=== PATIENT | female | born 1985 | race Caucasian/White ===

== ENCOUNTER 2020-08-30 15:11 | Outpatient (REF) | payer MEDICAID, SELFPAY | END 2020-08-30 15:12 | disposition home or self-care (01) | LOC: HO.LAB 15:11 | PROVIDERS: Visit Provider Internal Medicine | DX: Z20.828 Contact with and (suspected) exposure to other viral communicable diseases (principal) | CPT/HCPCS: C9803; U0003 ==

== ENCOUNTER 2021-09-08 12:52 | Outpatient (REF) | payer MEDICAID, SELFPAY ==
[2021-09-08 13:34] LABS: COVID-19 Test Negative (Negative)
== END 2021-09-08 12:53 | disposition home or self-care (01) ==
LOC: HO.LAB 12:52
PROVIDERS: Visit Provider Internal Medicine
DX: Z20.822 Contact with and (suspected) exposure to COVID-19 (principal)
CPT/HCPCS: 36415; 87635; C9803

== ENCOUNTER 2024-11-08 14:01 | Outpatient (REF) | payer MEDICAID, SELFPAY ==
--- OUTSIDE RECORDS SUMMARY | 2024-11-08 15:22 | XMS_ITS | Encounter Summary ---
Author Organization [facility] Address [address] [place] [address] 7 [place] [address] Care Team Providers Care Civil Structural Engineer Name Role Phone Unavailable Primary Care Provider Unavailabl e Reason for Visit * Reason Comments Pre-visit Planning (Unable to reach for PVP screening, LVM) Encounter Details Date Type Department Care Team ([facility] Contact Info) Description 10/11/2024 Patient Outreach [facility] MEDICINE [address] [place] [phone] Rukhsana Camarlilo MD [address] [place], [place] [phone] Pre-visit Planning ((Unable to reach for PVP screening, LVM)) Social History Tobacco Use Types Packs/Day Years Used Date Smoking Tobacco: Never Passive Smoke Exposure: Never Smokeless Tobacco: Never Comments Unknown Sex and Gender Information Value Date Recorded Sex Assigned at Female 07/27/2022 10:33 AM EDT Legal Sex Female 10:33 AM EDT Gender Identity Female 09/09/2022 9:28 AM EST Sexual Orientation Don't know 12/20/2023 2: 01 PM EDT documented as of this encounter Progress Notes * Alexa Lopez - 10/11/2024 9:49 AM EST CC Alexa. Placed outbound call to patient to complete pre-visit planning. No answer at this time. Patient name and were not confirmed. CC left voicemail requesting return call. Direct contact information provided. documented in this encounter Plan of Treatment Upcoming Encounters Date Type Department Care Team (Late Contact Info) Description 12/15/2024 11:45 AM EDT Office Visit [facility] MEDICINE [address] [place] [phone] Rukhsana Camarillo MD [address] [place] [address] documented as of this encounter Visit Diagnoses Not on filedocumented in this encounter
--- OUTSIDE RECORDS SUMMARY | 2024-11-08 15:22 | XMS_ITS | Encounter Summary ---
Author Organization [facility] Address [address] [facility] 7t [place] [address] Care Team Providers Care Dividing Machine Operator Name Role Phone Unavailable Primary Care Provider Unavailabl e Encounter Details Date Type Department Care Team (Latest Contact Info) Description 10/23/2024 Travel Social History Tobacco Use Types Packs/Day Years Used Date Smoking Tobacco: Never Passive Smoke Exposure: Never Smokeless Tobacco: Never Alcohol Use Standard Drinks/Week Comments Not Currently 0 (1 standard drink = 0.6 oz pur e alcohol) social Comments No Sex and Gender Information Value Date Recorded Sex Assigned at Female 07/27/2022 10:33 AM EDT Legal Sex Female 10:33 AM EDT Gender Identity Female 09/09/2022 9:28 AM EST Sexual Orientation Don't know 12/20/2023 2: 01 PM EDT documented as of this encounter Plan of Treatment Upcoming Encounters Date Type Department Care Team (Late st Contact Info) Description 12/15/2024 11:45 AM EDT Office Visit [facility] MED[facility]INE [address] [place] [address] Rukhsana Camarillo MD [address] [place] [address] documented as of this encounter Visit Diagnoses Not on filedocumented in this encounter
--- OUTSIDE RECORDS SUMMARY | 2024-11-08 15:22 | XMS_ITS | Encounter Summary ---
Author Organization [facility] Address [address] [place] [address] 7t [place] [address] Care Team Providers Care Warp Knitting Machine Operator Name Role Phone Unavailable Primary Care Provider Unavailabl e Reason for Visit * Reason Onset Date Comments Chart prep 10/20/2024 Encounter Details Date Type Department Care Team (Late Contact Info) Description 10/20/2024 Telephone [facility]INE [address] [place] [phone] Karely Browne MA Chart prep Social History Tobacco Use Types Packs/Day Years Used Date Smoking Tobacco: Never Passive Smoke Exposure: Never Smokeless Tobacco: Never Comments Unknown Sex and Gender Information Value Date Recorded Sex Assigned at Female 07/27/2022 10:33 AM EDT Legal Sex Female 10:33 AM EDT Gender Identity Female 09/09/2022 9:28 AM EST Sexual Orientation Don't know 12/20/2023 2: 01 PM EDT documented as of this encounter Miscellaneous Notes * Telephone Encounter - Karely Browne MA - 10/20/2024 11:09 AM EST Chart Prep Labs: done Images: done Vaccines due: yes Referrals: N/a Screenings: mammogram , pap smear Overdue care gaps: SDOH, PHQ-9 documented in this encounter Plan of Treatment Upcoming Encounters Date Type Department Care Team (Late Contact Info) Description 12/15/2024 11:45 AM EDT Office Visit [facility] [address] [place] [address] Rukhsana Camarillo MD [address] [place], [place] [phone] documented as of this encounter Visit Diagnoses Not on filedocumented in this encounter
--- OUTSIDE RECORDS SUMMARY | 2024-11-08 15:22 | XMS_ITS | Clinical Summary ---
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 Recommended to decrease soda and sugary beverage consumption, increase protein intake with meals (at least 1 portion of protein with each meal) to assist with satiety, increase dietary fiber Recommended at least 150 min/week of moderate intensity exercise. Patient wants a referral to dietitian. H/O: 10/23/2024 Encounter for screening mamm ogram for malignant neoplasm of breast 10/23/2024 Assessment & Plan (10/23/2024 12:13 PM EST): Ordered mammogram, patient's mother had breast cancer at the age of 42. Screen for sexually transmitted diseases 025 Assessment & Plan (10/23/2024 12:14 PM EST): Discussed with patient to use condom at all times to prevent STD. Consult to our STD clinic PRN. I ordered labs. 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 (CMS/HCC) (Primary Dx); Encounter for screening mammogram for malignant neoplasm of breast; Screen for sexually transmitted diseases; H/O: ; Dietary counseling; Exercise counseling 10/23/2024 Travel 10/20/2024 Telephone [facility] [address] [place] [phone] Karely Browne MA Chart prep 10/11/2024 Patient Outreach [address] [address] Rukhsana Camarillo MD Pre-visit Planning ((Unable to reach for PVP screening, LVM)) from Last 3 Months Social History Tobacco Use Types Packs/Day Years Used Date Smoking Tobacco: Never Passive Smoke Exposure: Never Smokeless Tobacco: Never Tobacco Cessation:Counseling Given: Not Answered Alcohol Use Standard Drinks/Week Comments Not Currently 0 (1 standard drink = 0.6 oz pur e alcohol) social Comments No Sex and Gender Information Value Date Recorded Sex Assigned at Female 07/27/2022 10:33 AM EDT Legal Sex Female 10:33 AM EDT Gender Identity Female 09/09/2022 9:28 AM EST Sexual Orientation Don't know 12/20/2023 2: 01 PM EDT Last Filed Vital Signs Vital Sign Reading Time Taken Comments Blood Pressure 122/79 10/23/2024 10:44 AM EST Pulse 98 10/23/2024 10:44 AM EST Temperature 35.2 ??C (95.3 ??F) 10/23/2024 10:[address] Respiratory Rate 16 10/23/2024 10:44 AM EST Oxygen Saturation 99% 10/23/2024 10:44 AM EST Inhaled Oxygen Concentration - - Weight 99.9 kg (220 lb 4 oz) 10/23/2024 10:44 AM EST Height 157.5 cm (5' 2 ) 10/23/2024 10:44 AM EST Body Mass Index 40.28 10/23/2024 10:44 AM EST Plan of Treatment Upcoming Encounters Date Type Department Care Team (Late st Contact Info) Description 12/15/2024 11:45 AM EDT Office Visit [facility] [address] [facility] [place] [address] Rukhsana Camarillo MD [address] [place] [address] Health Maintenance Due Date Last Done Comments Depression Screening 1983 HIV Screening 1983 Lipid Panel 1983 SDOH Screening 1983 Alcohol/Substance Use Screening 1995 Hepatitis C Screening 2001 DTaP/Tdap/Td Vaccines (1 - Tdap) 2002 Hepatitis B Vaccines (1 of 3 - 19+ 3-dose series) 2002 Pap Smear 01/19/2004 Mammogram 2023 02/18/2018 Cervical Cancer Screening 02/23/2023 HPV/Cotest 02/23/2023 02/23/2018 COVID-19 Vaccine (3 - 2023-2 5 season) 2024 10/09/2021, 09/11/2021 Influenza Vaccine (#1) 2024 Family Planning (PISQ) 10/23/2025 10/23/2024 Tobacco Screening 10/23/2025 10/23/2024 Zoster Vaccines (1 of 2) 2033 RSV Patients and Patients Aged 60 years or older (1 - 1-dose 75+ series) 2058 HIB Vaccines Aged Out No longer eligi ble based on patient's age to complete this topic HPV Vaccines Aged Out No longer eligi ble based on patient's age to complete this topic Hepatitis A Vaccines Aged Out No long er eligible based on patient's age to complete this topic IPV Vaccines Aged Out No longer eligi ble based on patient's age to complete this topic Meningococcal Vaccine Aged Out No kenzie opal eligible based on patient's age to complete this topic Pneumococcal Vaccine: Pediatrics (0 to 5 Years) and At-Risk Patients (6 to 49) Years) Aged Out No longer eligible b ased on patient's age to complete this topic RSV under 20 months Aged Out No longe r eligible based on patient's age to complete this topic Rotavirus Vaccines Aged Out No longer eligible based on patient's age to complete this topic Procedures Procedure Name Priority Date/Time Associated Diagnosis Comments GET HISTORICAL HPV MRNA E6/E7 Routine 02/23/2018 2:54 PM EDT BI MAMMOGRAM SCREENING BILATERAL Routine 02/18/2018 10:24 AM EDT from Last 3 Months or Most Recently Relevant to Health Maintenance Results * HPV mRNA E6/E7 (02/23/2018 2:54 PM EDT) HPV mRNA E6/E7 Not Detected NOT DETECTED [facility] Comment: This test was performed using the APTIMA(R) HPV Assay ([employer] This assay detects E6/E7 viral messenger RNA (mRNA) from 14 high-risk HPV types (16,18,31,33,35,39,45,51, 52,56,58,59,66,68). For additional information please refer to: http://education.BranchOut/faq/MBR397k1 (This link is being provided for informational/ educational purposes only.) The analytical performance characteristics of this assay have been determined by [employer] [place], [place]. The modifications have not been cleared or approved by the FDA. This assay has been validated pursuant to the CLIA regulations and is used for clinical purposes. Test Performed by [facility], [address] [employer] [facility], [address] [place] [address] Dalton Brunner M.D., Ph.D., Director of Laboratories , CLIA [id number] Please note: ??Effective 06/08/2016, HPV testing will be performed using [facility]'s APTIMA test which targets mRNA. Detecting mRNA instead of DNA, as in older methods, offers significant improvements in specificity. 02/23/2018 2:54 PM EDT us Humera Pitt CNM HISTORICAL/NON ORDERABLE LABS Final Result [facility] [address] * DIGITAL BILATERAL SCREEN 1 (02/18/2018 10:24 AM EDT) Anatomical Region Laterality Modality Breast Bilateral Mammography 02/18/2018 10:2 4 AM EDT Narrative 02/18/2018 10:26 AM EDT Refer to the Notes tab for result details [facility] Procedure: DIGITAL BILATERAL SCREEN 1 Procedure Note Provider, MD Chioma - 12/19/2022 Refer to the Notes tab for result details Legacy Procedure: DIGITAL BILATERAL SCREEN 1 us Carmen Witt MD IMG BI PROCEDURES Final Resul t from Last 3 Months or Most Recently Relevant to Health Maintenance [facility] Care Teams Carpet Inspector Relationship Specialty Start Date End Date Rukhsana Camarillo MD [address] [place] [address] [place] [address] PCP - General Internal Medicine 10/26/24
--- OUTSIDE RECORDS SUMMARY | 2024-11-08 15:22 | XMS_ITS | Encounter Summary ---
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 ([facility]) Rukhsana Camarillo MD [address] [place] [address] Phone: tel: fax: Referral ID Status Reason Start Date Expiration Date V isits Requested Visits Authorized [id number] Closed Consult and Treat 10/23/2024 10/23/2025 1 1 * Imaging (Routine) - Closed Specialty Diagnoses / Procedures Referred By Chelsy bose Referred To Contact Radiology Diagnoses Encounter for screening mammogram for malignant neoplasm of breast Procedures BI Mammogram Screening Tomosynthesis Bilateral Rukhsana Camarillo MD [address] [place] [address] Phone: tel: fax: [facility] [address] [place] [address] Phone: tel: fax: Referral ID Status Reason Start Date Expiration Date Visits Re quested Visits Authorized [id number] Closed 10/23/2024 10/23/2025 1 1 Reason for Visit * Reason Comments New patient appointment Encounter Details Date Type Department Care Team (Late st Contact Info) Description 10/23/2024 10:45 AM EST Office Visit [facility] [address] [place], [place] [phone] Rukhsana Camarillo MD [address] [place] [address] 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 year old female who presents for new patient visit . Denies recent illness, injury, or hospitalization. Patient here to establish care. PSurgHx: C-sections 2005, 2009 and BTL 14 yrs ago. OBHx: both uncomplicated C-Sections. LMP: 10/06/24 All: NKDA Mother: Breast cancer at 42yrs old. Father: no known history Siblings: no known history Last pap smear: 01/2018 Mammogram: 01/2018 Patient denies having any chronic disease and does not take any medication. 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 Acute Concerns: Patient states to be concerned about her weight. She is interested in taking Ozempic as it was recommended by one of her friends. 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 Review of Systems Constitutional: Positive for unexpected weight change (weight gain). Negative for chills, fatigue and fever. HENT: Negative for congestion, ear pain, nosebleeds, rhinorrhea, sinus pressure, sore throat and trouble swallowing. Eyes: Negative for pain and discharge. Respiratory: Negative for cough, chest tightness and shortness of breath. Cardiovascular: Negative for chest pain, palpitations and leg swelling. Gastrointestinal: Negative for abdominal pain, blood in stool, constipation, diarrhea and nausea. Endocrine: Negative for polydipsia and polyuria. Genitourinary: Negative for dysuria, frequency, genital sores, pelvic pain and vaginal discharge. Musculoskeletal: Negative for back pain and neck pain. Skin: Negative for rash. Allergic/Immunologic: Negative for environmental allergies. Neurological: Negative for dizziness, seizures, weakness, light-headedness and headaches. Hematological: Negative for adenopathy. Psychiatric/Behavioral: Negative for agitation, behavioral problems, self-injury and suicidal ideas. OBJECTIVE: Vitals: 10/23/24 1044 BP: 122/79 Pulse: 98 Resp: 16 Temp: 95.3 ??F (35.2 ??C) SpO2: 99% Physical Exam HENT: Right Ear: Tympanic membrane and ear canal normal. Left Ear: Tympanic membrane and ear canal normal. Mouth/Throat: Mouth: Mucous membranes are moist. Pharynx: No oropharyngeal exudate or posterior oropharyngeal erythema. Eyes: Pupils: Pupils are equal, round, and reactive to light. Cardiovascular: Rate and Rhythm: Regular rhythm. Pulses: Normal pulses. Heart sounds: Normal heart sounds. No murmur heard. Pulmonary: Breath sounds: Normal breath sounds. Abdominal: General: Bowel sounds are normal. Palpations: Abdomen is soft. Tenderness: There is no abdominal tenderness. Musculoskeletal: General: Normal range of motion. Cervical back: Neck supple. Skin: General: Skin is warm. Neurological: General: No focal deficit present. Mental Status: She is alert and oriented to person, place, and time. Psychiatric: Mood and Affect: Mood normal. Behavior: Behavior normal. 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 Recommended to decrease soda and sugary beverage consumption, increase protein intake with meals (at least 1 portion of protein with each meal) to assist with satiety, increase dietary fiber Recommended at least 150 min/week of moderate intensity exercise. Patient wants a referral to dietitian. Relevant Orders TSH with Reflex to Free T4 Comprehensive Metabolic Panel Lipid Panel with Reflex to Direct LDL CBC auto differential Hemoglobin A1c Referral to Nutrition Therapy Encounter for screening mammogram for malignant neoplasm of breast Ordered mammogram, patient's mother had breast cancer at the age of 42. Relevant Orders BI Mammogram Screening Tomosynthesis Bilateral Screen for sexually transmitted diseases Discussed with patient to use condom at all times to prevent STD. Consult to our STD clinic PRN. I ordered labs. Relevant Orders HIV-1/2 Antigen and Antibodies, Fourth Generation, with Reflexes Hepatitis Panel, General H/O: Other Visit Diagnoses Dietary counseling Exercise counseling Follow Up: No current outpatient medications on file prior to visit. No current facility-administered medications on file prior to visit. I, Michelle Gunderson, am serving as a scribe to document services personally performed by Dr. Rukhsana Camarillo, based on the patient's response to questions by provider and provider's statements to me. documented in this encounter Miscellaneous Notes * Patient Education Note - Rukhsana Camarillo MD - 10/23/2024 4:02 PM EST Images from the original note were not included. Patient Education Table of Contents Obesidad en los adultos (Obesity, Adult) To view videos and all your education online visit, [email or web address] or scan this QR code with your smartphone. Access to this content will in one year. Obesidad en los adultos Obesity, Adult La obesidad es regla afecci?n que implica tener demasiada grasa corporal total. Tener sobrepeso u obesidad significa que el peso es mayor que lo que se considera saludable para el lucila?o corporal. La obesidad se determina mediante regla medida denominada IMC (?ndice de masa muscular). El IMC (?ndice demasa corporal) es la estimaci?n de la grasa corporal y se calcula a partir de la altura y el peso. Si un adulto tiene un IMC de 30 o superior se considera [place]ia. La obesidad puede conducir a algunos de los siguientes problemas de jeanine y enfermedades graves: Accidente cerebrovascular. Arteriopat?a coronaria (EAC). Diabetes tipo 2. Algunos tipos de c?ncer, incluido el c?ncer de colon, mama, ?tero y ves?cula. Presi?n arterial reyna (hipertensi?n arterial). Colesterol alto. C?lculos en la ves?cula biliar. La obesidad tambi?n puede contribuir a lo siguiente: Artrosis. Apnea del roberto?o. Problemas de esterilidad. ?Cu?les son las causas? Las causas m?s frecuentes de esta afecci?n incluyen las siguientes: Consumir diariamente alimentos con altos niveles de calor?as, az?car y grasa. Beber grandes cantidades de bebidas endulzadas con az?car, wang refrescos. Nacer con genes que pueden hacerlo m?s propenso a ser [place]ia. Tener regla afecci?n que causa obesidad, por ejemplo: ? Hipotiroidismo. ? S?ndrome del ovario poliqu?stico (SOP). ? Trastorno alimentario compulsivo. ? S?ndrome de [place]. Jad ciertos medicamentos, wang esteroides, antidepresivos y anticonvulsivos. No ser f?sicamente activo (estilo de cara sedentario). No dormir lo suficiente. ?Qu?? incrementa el riesgo? Los siguientes factores pueden hacer que sea m?s propenso a contraer esta afecci?n: Tener antecedentes familiares de obesidad. Vivir en un ?bailee con acceso limitado a las siguientes posibilidades: ? Parques, centros recreativos o veredas. ? Alimentos saludables, wang se venden en tiendas de comestibles y mercados de agricultores. ?Cu?les son los signos o s?ntomas? El principal signo de esta afecci?n es tener demasiada grasa corporal. ?C?mo se diagnostica? Esta afecci?n se diagnostica en funci?n de lo siguiente: Ryan IMC. Si usted es un adulto y ryan IMC es de 30 o m?s, se considera que es [place]. La circunferencia de la cintura. Es regla medici?n alrededor de la cintura. El grosor del pliegue cut?brisa. El m?dico puede pellizcar suavemente un pliegue de la piel y medirlo. Es posible que le enrique otros estudios para phil si hay afecciones subyacentes. ?C?mo se trata? El tratamiento de esta afecci?n frecuentemente incluye cambiar el estilo de cara. El tratamiento puede incluir algunos o todos los siguientes elementos: Cambios en la dieta. [place] puede incluir el desarrollo de un plan de alimentaci?n saludable. Realizar actividad f?ken con regularidad. Puede incluir regla actividad que hace que el coraz?n latam?s r?pido (ejercicio aer?bico) y entrenamiento de fuerza. Trabajar con el m?dico para dise?ar un programa de ejercicios que sea adecuado para usted. Medicamentos para ayudarle a bajar de peso si no puede perder regla lexie por semana despu?s de seis semanas de comer de manera saludable y de hacer m?s actividad f?ken. Tratar las afecciones que causan la obesidad (afecciones preexistentes). Cirug?a. Las opciones quir?rgicas pueden incluir bandas g?stricas y bypass g?strico. Se puede realizar regla cirug?a si: ? Otros tratamientos no mejoraron ryan afecci?n. ? Tiene un IMC de 40 o superior. ? Tiene problemas de jeanine potencialmente mortales relacionados con la obesidad. Siga estas indicaciones en ryan casa: Comida y bebida Siga las instrucciones del m?dico respecto de lo que puede comer o beber. El m?dico puede indicarleque mesfin lo siguiente: ? Limitar las comidas r?pidas, los dulces y las colaciones procesadas. ? Elegir opciones con bajo contenido de grasa, wang leche descremada en lugar de leche entera. ? Consumir akin o m?s porciones de frutas o verduras por d?a. ? Elegir alimentos saludables cuando coma afuera. ? Tener a mano colaciones con bajo contenido de grasas. ? Limitar las bebidas azucaradas, wang refrescos, jugo de frutas, t?? helado endulzado y leche saborizada. Nataliia suficiente agua para mantener la orina de color amarillo p?lido. No siga regla dieta de moda. Las dietas de moda pueden ser poco saludables e incluso peligrosas. Otras opciones saludables incluyen: ? [place] en casa con m?s frecuencia. [place] le da m?s control sobre lo que come. ? Aprender a leer las etiquetas de los alimentos. [place] le ayudar?? a entender cu?nta comida se considera regla porci?n. ? Aprender cu?l es el lucila?o de regla porci?n saludable. Actividad f?ken Realice ejercicio con regularidad wang se lo haya indicado el m?dico. ? La mayor?a de los adultos deben hacer hasta 150?minutos de ejercicio de intensidad moderada cada semana. ? Consulte al m?dico qu?? tipo de ejercicios es seguro para usted y con qu?? frecuencia debe ejercitarse. Precaliente y elongue adecuadamente antes de hacer actividad f?ken. Rel?aida y elongue despu?s de hacer actividad f?ken. Descanse entre los per?odos de actividad. Estilo de cara Trabaje con el m?dico y un nutricionista para establecer regla meta de p?rdida de peso que sea saludable y razonable para usted. Limite el tiempo que pasa frente a regla pantalla. Busque formas de recompensarse que no incluyan alimentos. No nataliia alcohol si: ? Ryan m?dico le indica no hacerlo. ? Est?? embarazada, puede estar embarazada o est?? tratando de quedar embarazada. Si maria del rosario alcohol: ? Limite la cantidad que maria del rosario a lo siguiente: ? De 0 a 1 medida por d?a para las mujeres. ? De 0 a 2 medidas por d?a para los hombres. ? Sepa cu?nta cantidad de alcohol hay en las bebidas que belkys. En los [place], regla medida equivale a regla botella de cerveza de 12?oz (355?ml), un vaso de vino de 5?oz (148?ml) o un vaso de unabebida alcoh?lica de reyna graduaci?n de 1??oz (44?ml). Indicaciones generales Registre la p?rdida de peso en un diario para realizar un seguimiento de los alimentos que consume y cu?nto se ejercita. Use los medicamentos de venta wang y los recetados solamente wang se lo haya indicado el m?dico. [place] vitaminas y suplementos solamente wang se lo haya indicado el m?dico. Considere la posibilidad de participar en un jyoti de apoyo. El m?dico podr?a recomendarle un grupode apoyo. Preste atenci?n a la jeanine mental, ya que la obesidad puede provocar depresi?n o problemas de autoestima. Concurra a todas las visitas de seguimiento. [place] es importante. Comun?quese con un m?dico si: No puede alcanzar ryan objetivo de p?rdida de peso despu?s de seis semanas de cambios en la dieta y en el estilo de cara. Tiene dificultad para respirar. Resumen La obesidad es regla afecci?n que implica tener demasiada grasa corporal total. Tener sobrepeso u obesidad significa que el peso es mayor que lo que se considera saludable para eltama?o corporal. Trabaje con el m?dico y un nutricionista para establecer regla meta de p?rdida de peso que sea saludable y razonable para usted. Realice ejercicio con regularidad wang se lo haya indicado el m?dico. Consulte al m?dico qu?? tipo de ejercicios es seguro para usted y con qu?? frecuencia debe ejercitarse. Esta informaci?n no tiene wang fin reemplazar el consejo del m?dico. Aseg?rese de hacerle al m?dicocualquier pregunta que tenga. Document Released: 2006-09-13 Document Updated: 2022-05-12 Document Reviewed: 2022-05-12 Elsevier Patient Education ? 2023 [facility]. * Assessment & Plan Note - Michelle Gunderson MA - 10/23/2024 12:14 PM EST Associated Problem(s): Screen for sexually transmitted diseases Discussed with patient to use condom at all times to prevent STD. Consult to our STD clinic PRN. I ordered labs. * Assessment & Plan Note - Michelle Gunderson MA - 10/23/2024 12:13 PM EST Associated Problem(s): Encounter for screening mammogram for malignant neoplasm of breast Ordered mammogram, patient's mother had breast cancer at the age of 42. 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 Recommended to decrease soda and sugary beverage consumption, increase protein intake with meals (at least 1 portion of protein with each meal) to assist with satiety, increase dietary fiber Recommended at least 150 min/week of moderate intensity exercise. Patient wants a referral to dietitian. documented in this encounter Plan of Treatment Upcoming Encounters Date Type Department Care Team (Late st Contact Info) Description 12/15/2024 11:45 AM EDT Office Visit [facility] [address] [place], [place] [phone] Rukhsana Camarillo MD [address] [place], [place] [phone] Scheduled Orders Name Type Priority Associated Diagnoses Orde r Schedule TSH with Reflex to Free T4 Lab Routine Class 3 Obesity Due To Disruption Of Mc4r Pathway Without Serious Comorbidity With Body Mass Index (Bmi) Of 40.0 To 44.9 In Adult ([facility]) Expected: 10/23/2024 (Approximate), Expires: 10/23/2025 Comprehensive Metabolic Panel Lab Routine Class 3 Obesity Due To Disruption Of Mc4r Pathway Without Serious Comorbidity With Body Mass Index (Bmi) Of 40.0 To 44.9 In Adult ([facility]) Expected: 10/23/2024 (Approximate), Expires: 10/23/2025 Lipid Panel with Reflex to Direct LDL Lab Routine Class 3 Obesity Due To Disruption Of Mc4r Pathway Without Serious Comorbidity With Body Mass Index (Bmi) Of 40.0 To 44.9 In Adult ([facility]) Expected: 10/23/2024 (Approximate), Expires: 10/23/2025 HIV-1/2 Antigen and Antibodies, Fourth Generation, with Reflexes Lab Routine Screen for sexually transmitted diseases Expected: 10/23/2024 (Approximate), Expires: 10/23/2025 Hepatitis Panel, General Lab Routine Screen for sexually transmitted diseases Expected: 10/23/2024 (Approximate), Expires: 10/23/2025 CBC auto differential Lab Routine 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 to 44.9 in adult ([facility]) Expected: 10/23/2024 (Approximate), Expires: 10/23/2025 Hemoglobin A1c Lab Routine 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 to 44.9 in adult ([facility]) Expected: 10/23/2024 (Approximate), Expires: 10/23/2025 BI Mammogram Screening Tomosynthesis Bilateral Imaging Routine Encounter for screening mammogram for malignant neoplasm of breast Expected: 10/23/2024 (Approximate), Expires: 12/21/2025 Scheduled Referrals Name Type Priority Associated Diagnoses Orde r Schedule Referral to Nutrition Therapy Outpatient Referral Routine 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 to 44.9 in adult ([facility]) Expected: 10/23/2024 (Approximate), Expires: 10/23/2025 documented as of this encounter Visit Diagnoses Diagnosis 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
--- OUTSIDE RECORDS SUMMARY | 2024-11-08 15:22 | XMS_ITS | Encounter Summary ---
Author Organization [employer] [facility] Address [address] [facility] [facility] [address] [place] [address] Care Team Providers Care Organisation And Methods Analyst Name Role Phone Rukhsana Camarillo MD Primary Care Provider + Reason for Visit * Reason Onset Date Comments NUTRITION APPT REQUEST 10/26/2024 Encounter Details Date Type Department Care Team (Late Contact Info) Description 10/26/2024 Telephone [facility] [address] [place] [address] [place] [address] NUTRITION APPT REQUEST Social History Tobacco Use Types Packs/Day Years [...] encounter Miscellaneous Notes * Telephone Encounter - Abigail Julian - 10/26/2024 11:17 AM EST Called PT to schedule a nutritiona ppt. NA\LVM documented in this encounter Plan of Treatment Upcoming Encounters Date Type Department Care Team (Late Contact Info) Description 12/15/2024 11:45 AM EDT Office Visit [facility] [address] [place] [phone] Rukhsana Camarillo MD [address] [place] [address] documented as of this encounter Visit Diagnoses Not on filedocumented in this encounter Care Teams Organisation And Methods Analyst Relationship Specialty Start Date End Date Rukhsana Camarillo MD [address] [place] [address] PCP - General Internal Medicine 10/26/24 documented as of this encounter
== END 2024-11-08 14:02 | disposition home or self-care (01) ==
LOC: HO.MAMMO 14:01
PROVIDERS: PCP Internal Medicine; Visit Provider Internal Medicine
DX: Z12.31 Encounter for screening mammogram for malignant neoplasm of breast (principal)
CPT/HCPCS: 77063; 77067

== ENCOUNTER → 2024-11-08 14:15 | Outpatient (BNV) | payer MEDICAID, SELFPAY | PROVIDERS: PCP Internal Medicine; Visit Provider Internal Medicine | DX: Z12.31 Encounter for screening mammogram for malignant neoplasm of breast (principal) | CPT/HCPCS: 77063; 77067 ==

== ENCOUNTER 2024-12-09 08:38 | Outpatient (REF) | payer MEDICAID, SELFPAY ==
--- OUTSIDE RECORDS SUMMARY | 2024-12-09 08:40 | XMS_ITS | Clinical Summary ---
Author Organization [facility] Address [address] 7[address] [place] [address] Care Team Providers Care Statement Distribution Clerk Name Role Phone Rukhsana Camarillo MD Primary [...] Encounters Date Type Department Care Team Description 12/08/2024 Patient Outreach [facility] MED & PEDS [address] [place] [address] Rukhsana Camarillo MD Pre-visit Planning (SDOH negative, Tobacco screening negative. 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 (CMS/[facility]) (Primary Dx); Encounter for screening mammogram for malignant neoplasm of breast; Screen for sexually transmitted diseases; H/O: ; Dietary counseling; Exercise counseling 10/23/2024 Travel 10/20/[address] [address] K[address] [place] [place] Chart prep 10/11/2024 Patient Outreach [address] [address] Rukhsana Camarillo MD Pre-visit Planning ((Unable to reach for PVP screening, LVM)) from Last 3 Months Social History Tobacco Use Types Packs/Day Years Used Date Smoking Tobacco: Never Passive Smoke Exposure: Never Smokeless Tobacco: Never Tobacco Cessation:Counseling Given: Not Answered Alcohol Use Standard Drinks/Week Comments Not Currently 0 (1 standard drink = 0.6 oz pur e alcohol) social Housing Stability Answer Date Recorded What is your housing situation today? I have adina vasquez 12/08/[address] you li ve. Do you have problems with any of the following? None of the above 12/08/2024 Food Insecurity Answer Date Recorded Within the past 12 months, y ou worried that your food would run out before you got money to buy more: Never True 12/08/2024 Within the past 12 months,th e food you bought just didn't last and you didn't have enough money to get more: Never True Transportation Answer Date Recorded In the past 12 months, has l ack of transportation kept you from medical appts, meetings, work or from getting things needed for daily living? No 12/08/2024 Utilities Answer Date Recorded In the past 12 months, has t he electric, gas, oil or water company threatened to shut off services in your home? No 12/08/2024 Internet Access Answer Date Recorded Internet Access Q1 Yes 12/08/2024 Internet Access Q2 Not on file 12/08/2024 Comments No Sex and Gender Information Value [...] Description 12/15/2024 11:45 AM EDT Office Visit [facility] MEDICINE [address] [place] [address] Rukhsana Camarillo MD [address] [place] [address] Health Maintenance Due Date Last Done Comments Depression Screening 1983 HIV Screening 1983 Lipid Panel 1983 Alcohol/Substance Use Screening 1995 Hepatitis C Screening 2001 DTaP/Tdap/Td Vaccines (1 - Tdap) 2002 Hepatitis B Vaccines (1 of 3 - 19+ 3-dose series) 2002 Pap Smear 01/19/2004 Cervical Cancer Screening 02/23/2023 HPV/Cotest 02/23/2023 02/23/2018 COVID-19 Vaccine (3 - 2023-2 5 season) 2024 10/09/2021, 09/11/2021 Influenza Vaccine (#1) 2024 Family Planning (PISQ) 10/23/2025 10/23/2024 Tobacco Screening 10/23/2025 10/23/2024 SDOH Screening 12/08/2025 12/08/2024 Mammogram 11/08/2026 11/08/2024, 02/18/2018 Zoster Vaccines (1 of 2) 2033 RSV [...] Procedure Name Priority Date/Time Associated Diagnosis Comments BI MAMMOGRAM SCREENING TOMOSYNTHESIS BILATERAL Routine 11/08/2024 2:15 PM EST Encounter for screening mammogram for malignant neoplasm of breast ZZZ HISTORICAL HPV MRNA E6/E7 Routine 02/23/2018 2:54 PM EDT from Last 3 Months or Most Recently Relevant to Health Maintenance Results * BI Mammogram Screening Tomosynthesis Bilateral (11/08/2024 2:15 PM EST) Anatomical Region Laterality Modality Breast Bilateral Mammography 11/08/2024 2:15 PM EST Narrative 11/17/2024 4:41 PM EST ? [facility] ? [address] ?[place] [address] ? Mammography Report ? Signed ? Patient: Quiroga Carolina,Hyacinth ?MR#: [id number] ?? [id number] ? : 1985 ?Acct:[id number] ? Age/Sex: 39 / F ?ADM Date: 11/08/24 ? Loc: HO.MAMMO ? Attending Dr: Rukhsana Camarillo MD ? Ordering Physician: Rukhsana Camarillo MD ?Results: 1Ne ?? gative ? Date of Service: 11/08/24 ?Follow Up: 1 Year From Orig ?? inal Mammogram ? Procedure(s): MM tomosynthesis screening BI ?? Accession Number(s): [id number] ? cc: Rukhsana Camarillo MD ? EXAMINATION: ?? MM SCREENING DIGITAL BREAST TOMOSYNTHESIS, BILATERAL ? CLINICAL INFORMATION: ? Screening. Asymptomatic. ? COMPARISON: ?? Mammography: Comparison is made with available priors ? TECHNIQUE: ?? Digital breast mammography with tomosynthesis is performed in both the ?? craniocaudal and mediolateral oblique views along with computer-aided ?? detection (CAD). ? FINDINGS: ?? There are scattered areas of fibroglandular density (ACR BI-RADS breast ?? composition Category b). ? There are no significant masses, abnormal calcifications, or other ?? abnormalities. ? MM/MM tomosynthesis screening BI ?? IMPRESSION: ?? No mammographic evidence of malignancy. ? ASSESSMENT: ? BI-RADS BI-RADS 1 - Negative ? RECOMMENDATION: ?? Routine annual mammography screening. ?? Patient has a strong family history of breast cancer. Breast MRI could ?? be considered for screening surveillance. ?? Breast MRI would need to be ordered by the patient's providing ?? clinician. ? 1 year F/U ? This examination should not preclude the clinical evaluation of a ?? suspicious palpable abnormality. ? This patient's information was entered into a reminder system with a ?? target due date for their next mammogram. ? Electronically signed by: ??Amisha Mckay DO ??11/17/2024 04:38 PM EST ?? RP ? Dictated By: ?Amisha Mckay DO ? Signed By: ?<Electronically signed by Amisha Mckay, in OV> ? 11/17/24 1638 ? DD/ 1415 ? TD/TT: 11/08/24 1430 ? Bi Data Architect: ? Procedure Note Wagner, Image - 11/17/2024 [place] [facility] [address] [place] [address] Mammography Report Signed Patient: Hyacinth ChengMR#: [id number] : 1985Acct:[id number] Age/Sex: 39 / FADM Date: 11/08/24 Loc: HO.MAMMO Attending Dr: Rukhsana Camarillo MD Ordering Physician: Rukhsana Camarillo MDResults: 1Ne gative Date of Service: 11/08/24Follow Up: 1 Year From Orig inal Mammogram Procedure(s): MM tomosynthesis screening BI Accession Number(s): [id number] cc: Rukhsana Camarillo MD EXAMINATION: MM SCREENING DIGITAL BREAST TOMOSYNTHESIS, BILATERAL CLINICAL INFORMATION: Screening. Asymptomatic. COMPARISON: Mammography: Comparison is made with available priors TECHNIQUE: Digital breast mammography with tomosynthesis is performed in both the craniocaudal and mediolateral oblique views along with computer-aided detection (CAD). FINDINGS: There are scattered areas of fibroglandular density (ACR BI-RADS breast composition Category b). There are no significant masses, abnormal calcifications, or other abnormalities. MM/MM tomosynthesis screening BI IMPRESSION: No mammographic evidence of malignancy. ASSESSMENT: BI-RADS BI-RADS 1 - Negative RECOMMENDATION: Routine annual mammography screening. Patient has a strong family history of breast cancer. Breast MRI could be considered for screening surveillance. Breast MRI would need to be ordered by the patient's providing clinician. 1 year F/U This examination should not preclude the clinical evaluation of a suspicious palpable abnormality. This patient's information was entered into a reminder system with a target due date for their next mammogram. Electronically signed by: Amisha Mckay DO 11/17/2024 04:38 PM [facility] Dictated By: Amisha Mckay DO Signed By: <Electronically signed by Amisha Mckay DO in OV> 11/17/24 1638 DD/ 1415 TD/TT: 11/08/24 1430 Bi Data Architect: Rukhsana Camarillo MD IM BI PROCEDURES Final Result * HPV mRNA E6/E7 (02/23/2018 2:54 PM EDT) HPV mRNA E6/E7 Not Detected NOT DETECTED [facility] Comment: This test was performed using the APTIMA(R) HPV Assay ([employer] This assay detects E6/E7 viral messenger RNA (mRNA) from 14 high-risk HPV types (16,18,31,33,35,39,45,51, 52,56,58,59,66,68). For additional information please refer to: http://education.F[employer].GMG33/faq/OSH597p7 (This link is being provided for informational/ educational purposes only.) The analytical performance characteristics of this assay have been determined by [employer] [place], [place]. The modifications have not been cleared or approved by the FDA. This assay has been validated pursuant to the CLIA regulations and is used for clinical purposes. Test Performed by [employer] [facility], [employer] [facility], [address] [place] [address] Dalton Brunner M.D., Ph.D., Director of Laboratories , [facility] [id number] Please note: ??Effective 06/08/2016, HPV testing will be performed using [employer]'s APTIMA test which targets mRNA. Detecting mRNA instead of DNA, as in older methods, offers significant improvements in specificity. 02/23/2018 2:54 PM EDT us [facility] CNM HISTORICAL/NON ORDERABLE LABS Final Result Performing Organization Address City/State/[facility] Co de Phone Number [facility] Formerly [facility] Anywhere [address] from Last 3 Months or Most Recently Relevant to Health Maintenance Insurance [facility] C3 Care Teams Statement Distribution Clerk Relationship Specialty Start Date End Date Rukhsana Camarillo MD [address] [place] [address] PCP - General Internal Medicine 10/26/24
--- OUTSIDE RECORDS SUMMARY | 2024-12-09 08:40 | XMS_ITS | Encounter Summary ---
Author Organization [employer] Address [address] [facility] 7[address] [place] [address] Care Team Providers Care Security Solutions Engineer Name Role Phone Rukhsana Camarillo MD Primary Care Provider + Encounter Details Date Type Department Care Team (Late st Contact Info) Description 12/08/2024 Population Health Risk Score [facility] (C3) Department [address] [facility] [address] [place] [id number] Provider, Population Health Generic Social History Tobacco Use Types Packs/Day Years Used Date Smoking Tobacco: Never Passive Smoke Exposure: Never Smokeless Tobacco: Never Alcohol Use Standard Drinks/Week Comments Not Currently 0 (1 standard drink = 0.6 oz pur e alcohol) social Housing Stability Answer Date Recorded What is your housing situation today? I have adina sing 12/08/[address] you li [...] Description 12/15/2024 11:45 AM EDT Office Visit [facility] MEDICINE [address] [place] [address] Rukhsana Camarillo MD [address] [place] [address] documented as of this encounter Visit Diagnoses Not on filedocumented in this encounter Care Teams Security Solutions Engineer Relationship Specialty Start Date End Date Rukhsana Camarillo MD [address] [place] [address] PCP - General Internal Medicine 10/26/24 documented as of this encounter
--- OUTSIDE RECORDS SUMMARY | 2024-12-09 08:41 | XMS_ITS | Encounter Summary ---
Author Organization [employer] Address [address] [facility] [address] 7[address] [place] [address] Care Team Providers Care Embedded Software Design Engineer Name Role Phone Rukhsana Camarillo MD Primary Care Provider + Reason for Visit * Reason Comments Pre-visit Planning SDOH negative, Tobac co screening negative. Encounter Details Date Type Department Care Team ([facility] st Contact Info) Description 12/08/2024 Patient Outreach [facility] MED & PEDS [address] [place] [address] Rukhsana Camarillo MD [address] [place] [address] Pre-visit Planning (SDOH negative, Tobacco screening negative. ) Social History Tobacco Use Types Packs/Day Years Used Date Smoking Tobacco: Never Passive Smoke Exposure: Never Smokeless Tobacco: Never Alcohol Use Standard Drinks/Week Comments Not Currently 0 (1 standard drink = 0.6 oz pur e alcohol) social Housing Stability Answer Date Recorded What is your housing situation today? I have adinagerald vasquez 12/08/[address] you [...] t he electric, gas, oil or water [employer] threatened to shut off services in your [...] as of this encounter Progress Notes * Scarlett Macdonald - 12/08/2024 3:57 PM EDT CC Scarlett Mckenna placed successful outbound call to patient for pre-visit planning. Patient name and confirmed. Patient confirms appt date and time, and has transportation arrangements. Biggest concern for appointment at this time is no concerns. Appropriate screenings completed in anticipation ofappointment. documented in this encounter Plan of Treatment Upcoming Encounters Date Type Department Care Team (Late st Contact Info) Description 12/15/2024 11:45 AM EDT Office Visit [facility] MEDICINE [address] [place] [address] Rukhsana Camarillo MD [address] [place] [address] documented as of this encounter Visit Diagnoses Not on filedocumented in this encounter Care Teams Embedded Software Design Engineer Relationship Specialty Start Date End Date Rukhsana Camarillo MD [address] [place] [address] PCP - General Internal Medicine 10/26/24 documented as of this encounter
[2024-12-09 08:49] LABS: MANUAL DIFF FLAG NO
[2024-12-09 09:42] LABS: Basophils Absolute Auto 0.1 X10*3/uL (0.0-0.2); Basophils Percent Auto 1.1 % (0-2); Eosinophils Absolute Auto 0.1 X10*3/uL (0.0-0.4); Eosinophils Percent Auto 2.2 % (0-4); Hematocrit 36.6 % (37.0-47.0); Hemoglobin 12.8 g/dl (12.0-16.0); Imm Gran Abs Auto 0.01 X10*3/uL (0.00-0.03); Imm Gran Pct Auto 0.2 % (0.0-0.4); Lymphocytes Absolute Auto 1.4 X10*3/uL (1.2-4.9); Mean Corpuscular Hemoglobin 31.9 pg (27.0-33.0); Mean Corpuscular Volume 91.3 fL (80.0-98.0); Monocytes Absolute Auto 0.4 X10*3/uL (0.1-1.2); Monocytes Percent Auto 6.9 % (2-11); Neutrophils Absolute Auto 3.5 x10*3/uL (2.0-8.3); Neutrophils Percent Auto 64.6 % (45-73); Platelet Count 366 X10*3/uL (160-400); Red Blood Count 4.01 X10*6/uL (4.20-5.50); Red Cell Distribution Width 12.5 % (11.0-16.0); White Blood Count 5.4 X10*3/uL (4.8-10.8)
[2024-12-09 09:52] LABS: Estimated Average Glucose 100 mg/dL; Hemoglobin A1c % 5.1 % (<6.0)
[2024-12-09 10:39] LABS: Alanine Aminotransferase 33 U/L (0-31); Alkaline Phosphatase 87 U/L (39-117); Anion Gap 11 (12-20); Aspartate Amino Transferase 27 U/L (5-31); Bilirubin Total 0.5 mg/dL (0.0-1.0); Blood Urea Nitrogen 10 mg/dL (9-16); Calcium 9.1 mg/dL (8.4-10.2); Carbon Dioxide 24 mmol/L (22-29); Chloride 109 mmol/L (96-108); Cholesterol 152 mg/dL (<200); Estimated Glomerular Filt Rate > 60; Glucose Random 81 mg/dL (60-115); HDL Cholesterol 48 mg/dL (>40); LDL Cholesterol Calculated 89 mg/dL (<100); Potassium 4.2 mmol/L (3.3-5.1); Sodium 140 mmol/L (135-145); Total Protein 7.1 g/dL (6.5-8.0); Triglycerides 78 mg/dL (<150)
[2024-12-09 10:48] LABS: HBS Num1 1.07 mIU/mL (0-7.99); HBsAGNum1 0.24 S/CO (0.00-0.99); HIV AB/AG Nonreactive (Nonreactive); HIV Num 1 0.21 S/CO (0.00-0.99); Hepatitis A Antibody IgM 0.16 Index (0-0.79); Hepatitis B Core Antibody Nonreactive (Nonreactive); Hepatitis B Surface Antigen Negative (Negative); ~HepC Num1 0.25 S/CO (0.00-0.79); ~Hepatitis A Antibody IgM Nonreactive (Nonreactive); ~Hepatitis B Surface Antibody NONREACTIVE (Nonreactive); ~Hepatitis C Antibody Nonreactive (Nonreactive)
[2024-12-09 10:53] LABS: Reflex LDLD? No
[2024-12-09 10:55] LABS: TSH reflex Free T4 1.12 uIU/mL (0.32-4.0)
== END 2024-12-09 08:39 | disposition home or self-care (01) ==
LOC: HO.LAB 08:38
PROVIDERS: PCP Internal Medicine; Visit Provider Internal Medicine
DX: E66.813 Obesity, class 3 (principal); E88.82 Obesity due to disruption of MC4R pathway; Z15.2 Genetic susceptibility to obesity; Z68.41 Body mass index [BMI] 40.0-44.9, adult; Z11.3 Encounter for screening for infections with a predominantly sexual mode of transmission
CPT/HCPCS: 36415; 80053; 80061; 83036; 84443; 85025; 86704; 86706; 86709; 86803; 87340; 87389